=== PATIENT | female | born 1955 | race Caucasian/White ===

== ENCOUNTER 2017-04-13 13:29 | Emergency (ER) | END 2017-04-13 17:41 | disposition home or self-care (01) ==

== ENCOUNTER 2018-07-18 13:12 | Emergency (ER) | payer OTHER ==
[~2018-07-18] VITALS: Ht 160 cm; Wt 76.7 kg
[~2018-07-18 13:12] MED LIST: ACET500C5 PO
[2018-07-18 13:14] VITALS: BP 135/64; PULSE 84; RESP 18; Ht 160 cm; Wt 76.7 kg
[2018-07-18] MEDS ORDERED: DIPHTH/TET/ACEL PERTUSS (ADULT) 0.5 ML VIAL IM* ONE (15:00)
--- NOTE | 2018-07-18 15:05 | ERD ---
ER Documentation Chief Complaint Chief Complaint FOR SUTURE REMOVAL ON LT INDEX FINGER HPI 62-year-old female patient, right-handed presents to the ED stating that she accidentally cut her left index finger from a sharp lid from an open can. Denies any fever, chills, nausea, vomiting, loss sensation, loss of range of motion. Reports that she has been taking Keflex, Bactrim finger infection completed the course. Denies any chest pain, shortness of breath, nausea, vomiting, fever. ROS All systems reviewed and are negative except as per history of present illness. Medications Home Meds Active Scripts Acetaminophen* (Tylophen*) 500 Mg Capsule, 1 CAP PO Q6H PRN for PAIN AND OR ELEVATED TEMP, #20 CAP Prov:MALIKA SANDERS PA-C 04/13/17 Allergies Allergies: Coded Allergies: No Known Allergy (Unverified , 04/13/17) PMhx/Soc Hx Alcohol Use: No Hx Substance Use: No Hx Tobacco Use: No FmHx Family History: No diabetes, No coronary disease Physical Exam Vitals Vital Signs Date Temp Pulse Resp B/P (MAP) Pulse Ox O2 O2 Flow FiO2 Time Delivery Rate 07/18/18 98.0 84 18 135/64 98 13:14 (87) Physical Exam Const: [id number], well-nourished. In no acute distress. Head: Atraumatic, normocephalic Eyes: Normal Conjunctiva without injection ENT: Normal external ear, nose and mouth. Neck: Full range of motion. No meningismus. Resp: Clear to auscultation bilaterally. No wheezing, rhonchi, rales, or crackles. No accessory muscle use. No retractions. Cardio: Regular rate and rhythm, no murmurs Skin: No petechiae or rashes Back: No midline tenderness. No CVA tenderness. Ext: No cyanosis, or edema. Cap refill less than 2 seconds. Distal pulses intact bilaterally. 6 sutures noted of the volar aspect of patient's left index finger superior to the PIP. No signs of dehiscence. Full range of motion of the DIP, PIP, MCP joints bilaterally. Neur: Awake and alert. Normal gait and coordination. Muscle strength 5/5. Sensation intact bilaterally. Psych: Normal Mood and Affect Results 24 hrs Current Medications Medications Dose Sig/Yoana Start Time Status Last (Trade) Ordered Route PRN Stop Time Admin Dose Reason Admin Diphtheria/ 0.5 ml ONCE ONCE 07/18/18 Tetanus/Acell IM* 15:00 Pertussis 07/18/18 15:01 (Adacel) Procedures/MDM 62-year-old female patient with no significant past medical history presents to ED complaining of left index finger removal. Patient is afebrile and nontoxic- appearing. Tdap was administered patient here in the ED because she does not remember when her last tetanus vaccine was not vaccinated during her previous initial visit at the time of injury. States it is been more than 5 years. 6 sutures removed without any difficulty. No complications. Slight dehiscence noted, therefore patient's left finger was cleaned with alcohol pad and Steri- Strips were applied to the left finger. Low suspicion for deep space infection, fractures, dislocations, foreign bodies, tendon laceration, or other emergent conditions. Patient reports that she feels numbness and tingling of her left finger, has decreased sensation however cap refill 2 seconds. Patient still has sensation intact however patient was given a resource to the hand clinic at all of you for further treatment. Follow up with primary care physician in 1-2 days. Instructed patient to return to the ED sooner for any worsening symptoms. Patient's questions were answered. Patient is hemodynamically stable. Patient understood and agreed with discharge plan. Patient discharged stable. Disclaimer: Inadvertent spelling and grammatical errors are likely due to EHR/dictation software use and do not reflect on the overall quality of patient care. Also, please note that the electronic time recorded on this note does not necessarily reflect the actual time of the patient encounter. Departure Diagnosis: Primary Impression: Encounter for removal of sutures Condition: Stable Patient Instructions: Suture Removal, No Complication Referrals: [facility] YOU HAVE RECEIVED A MEDICAL SCREENING EXAM AND THE RESULTS INDICATE THAT YOU DO NOT HAVE A CONDITION THAT REQUIRES URGENT TREATMENT IN THE EMERGENCY DEPARTMENT. FURTHER EVALUATION AND TREATMENT OF YOUR CONDITION CAN WAIT UNTIL YOU ARE SEEN IN YOUR DOCTORS OFFICE WITHIN THE NEXT 1-2 DAYS. IT IS YOUR RESPONSIBILITY TO MAKE AN APPOINTMENT FOR FOLOW-UP CARE. IF YOU HAVE A PRIMARY DOCTOR --you should call your primary doctor and schedule an appointment IF YOU DO NOT HAVE A PRIMARY DOCTOR YOU CAN CALL OUR PHYSICIAN REFERRAL HOTLINE AT IF YOU CAN NOT AFFORD TO SEE A PHYSICIAN YOU CAN CHOSE FROM THE FOLLOWING [facility] CLINICS [facility] [address] [facility] [address] [facility] [address] [facility] [address] [facility] [address] [facility]. [facility] [address] [facility]. [facility] YOU HAVE RECEIVED A MEDICAL SCREENING EXAM AND THE RESULTS INDICATE THAT YOU DO NOT HAVE A CONDITION THAT REQUIRES URGENT TREATMENT IN THE EMERGENCY DEPARTMENT. FURTHER EVALUATION AND TREATMENT OF YOUR CONDITION CAN WAIT UNTIL YOU ARE SEEN IN YOUR DOCTORS OFFICE WITHIN THE NEXT 1-2 DAYS. IT IS YOUR RESPONSIBILITY TO MAKE AN APPOINTMENT FOR FOLOW-UP CARE. IF YOU HAVE A PRIMARY DOCTOR --you should call your primary doctor and schedule and appointment IF YOU DO NOT HAVE A PRIMARY DOCTOR YOU CAN CALL OUR PHYSICIAN REFERRAL HOTLINE AT . IF YOU CAN NOT AFFORD TO SEE A PHYSICIAN YOU CAN CHOSE FROM THE FOLLOWING [facility] INSTITUTIONS[facility] [address] [place] [address] [facility] [address] [place] [address] [facility] [address] [place] [address] [facility] URGENT CARE/SPECIALTIES [facility] Additional Instructions: Call your primary care doctor TOMORROW for an appointment during the next 2-3 days for referral to see a hand specialist.See the doctor sooner or return here if your condition worsens before your appointment time. MALIKA SANDERS PA-C July 18, 2018 15:05
== END 2018-07-18 15:12 | disposition home or self-care (01) ==
LOC: FTE 13:12
DX: Z48.02 Encounter for removal of sutures (principal); Z23 Encounter for immunization
CPT/HCPCS: 90471; 90715; Z7502